=== PATIENT | female | born 1940 | race Hispanic/Latino ===

== ENCOUNTER 2017-08-25 17:39 | Emergency (ER) | payer MEDICARE ==
[~2017-08-25 17:39] MED LIST: ASPI-1012 PO; FISH1CAP49 PO; FURO40TA5 PO; GUAI120L62 PO; HYDR-4154 PO; LEVO25TA54 PO; LORA10TA7 PO; LOSA100T29 PO; MULT-1258 PO; OSEL75 PO; PRED20TA3 PO; SIMV40TA59 PO
[2017-08-25 18:08] LABS: BASOPHILS % (AUTO) 0.4 % (0.0-5.0); EOSINOPHILS % (AUTO) 2.7 % (0.0-8.0); HEMATOCRIT 29.9 % (36-48); LYMPHOCYTES % (AUTO) 16.8 % (21.0-51.0); MEAN CORPUSCULAR HEMOGLOBIN 31.2 pg (27.0-33.0); MEAN CORPUSCULAR HGB CONC 35.4 g/dL (32.0-36.0); MONOCYTES % (AUTO) 7.4 % (3.0-13.0); NEUTROPHILS % (AUTO) 72.7 % (40.0-77.0); PLATELET COUNT (AUTO) 273 K/uL (130-400); RED BLOOD CELL COUNT(AUTO) 3.39 MIL/uL (4.00-5.50); RED CELL DISTRIBUTION WIDTH 12.7 % (11.0-15.5); WHITE BLOOD COUNT (AUTO) 8.2 K/uL (4.8-10.8)
[2017-08-25 18:15] LABS: POTASSIUM 3.9 mmol/L (3.5-5.1)
[2017-08-25 18:18] LABS: INR 0.93 (0.85-1.15); PARTIAL THROMBOPLASTIN TIME 29.5 SEC (26.3-35.5); PROTHROMBIN TIME 9.8 SEC (9.6-11.6)
[2017-08-25] MEDS ORDERED: TRAMADOL HCL 50 MG TABLET ONE ×2 (19:16→19:28)
== END 2017-08-25 19:50 | disposition home or self-care (01) ==
LOC: EDH 17:39
DX: M79.89 Other specified soft tissue disorders (principal); M79.662 Pain in left lower leg; I11.0 Hypertensive heart disease with heart failure; I50.9 Heart failure, unspecified; E11.9 Type 2 diabetes mellitus without complications; E07.9 Disorder of thyroid, unspecified; Z79.4 Long term (current) use of insulin; Z88.0 Allergy status to penicillin
CPT/HCPCS: 36415; 80048; 85025; 85610; 85730; 93971

== ENCOUNTER 2017-08-26 06:15 | Emergency (ER) | payer MEDICARE ==
[2017-08-26] MEDS ORDERED: ACETAMINOPHEN-CODEINE 300/30MG TAB ONE (06:37)
== END 2017-08-26 07:00 | disposition home or self-care (01) ==
LOC: EDH 06:15
DX: I13.0 Hypertensive heart and chronic kidney disease with heart failure and stage 1 through stage 4 chronic kidney disease, or unspecified chronic kidney disease (principal); R60.9 Edema, unspecified; I50.9 Heart failure, unspecified; E11.22 Type 2 diabetes mellitus with diabetic chronic kidney disease; N18.9 Chronic kidney disease, unspecified; E07.9 Disorder of thyroid, unspecified; Z79.4 Long term (current) use of insulin; Z88.0 Allergy status to penicillin

== ENCOUNTER 2018-09-17 12:00 | Inpatient (IN) | payer MEDICARE ==
[~2018-09-17] VITALS: Ht 157.5 cm; Wt 74.8 kg
[~2018-09-17 12:00] MED LIST changes: -LOSA100T29 PO; +LOSA100T58 PO
[2018-09-17 12:42] LABS: BASOPHILS % (AUTO) 0.9 % (0.0-5.0); EOSINOPHILS % (AUTO) 3.9 % (0.0-8.0); HEMATOCRIT 33.1 % (36-48); LYMPHOCYTES % (AUTO) 21.6 % (21.0-51.0); MEAN CORPUSCULAR HEMOGLOBIN 30.5 pg (27.0-33.0); MEAN CORPUSCULAR HGB CONC 33.9 g/dL (32.0-36.0); MEAN CORPUSCULAR VOLUME 89.8 fL (79-99); MONOCYTES % (AUTO) 5.4 % (3.0-13.0); NEUTROPHILS % (AUTO) 68.2 % (40.0-77.0); PLATELET COUNT (AUTO) 266 K/uL (130-400); RED BLOOD CELL COUNT(AUTO) 3.68 MIL/uL (4.00-5.50); RED CELL DISTRIBUTION WIDTH 13.5 % (11.0-15.5); WHITE BLOOD COUNT (AUTO) 6.7 K/uL (4.8-10.8)
[2018-09-17 12:55] LABS: CREATININE 3.6 mg/dL (0.5-1.5); POTASSIUM 4.6 mmol/L (3.5-5.1)
[2018-09-17 13:00] LABS: ALBUMIN 3.5 g/dL (3.5-5.0); BILIRUBIN,TOTAL 0.3 mg/dL (0.2-1.0)
[2018-09-17 13:05] LABS: APPEARANCE,URINE Clear (CLEAR); BILIRUBIN,URINE Negative (NEGATIVE); COLOR,URINE Yellow (YELLOW); GLUCOSE, URINE (UA) Negative (NEGATIVE); KETONES,URINE Negative (NEGATIVE); LEUKOCYTE ESTERASE ,URINE Large (NEGATIVE); NITRATE,URINE Negative (NEGATIVE); OCCULT BLOOD,URINE Negative (NEGATIVE); PROTEIN,URINE Negative (NEGATIVE); UROBILINOGEN,URINE 0.2 mg/dL (0.2-1.0)
[2018-09-17] MEDS ORDERED: ONDANSETRON HCL 4 MG/2 ML VIAL ONE (13:17)
[2018-09-17 13:26] LABS: BACTERIA,URINE Rare /HPF (None Seen); MUCUS,URINE Rare LPF (None Seen); RBC,URINE 0-1 /HPF (0-1); SQUAMOUS EPITHELIAL CELL,UR Rare /HPF (0-2)
[2018-09-17] MEDS ORDERED: ONDANSETRON HCL 4 MG/2 ML VIAL IV PRN (14:00)
[2018-09-17] MEDS ORDERED: ACETAMINOPHEN 325 MG TAB PO PRN ×2 (14:00)
[2018-09-17] MEDS ORDERED: LEVOFLOXACIN 500 MG/D5W 100 ML 100 ML ONE (14:31)
[2018-09-17] MEDS ORDERED: METRONIDAZOLE 500 MG TABLET ONE (16:31)
[2018-09-17] MEDS ORDERED: FAMOTIDINE/PF 20 MG/2 ML VIAL IV ONE (22:25)
[2018-09-17 23:00] VITALS: BP 166/56
[2018-09-17] MEDS: LEVOFLOXACIN 500 MG TABLET PO SCH (23:00)
[2018-09-17] MEDS: METRONIDAZOLE 500 MG TABLET PO SCH (23:00)
[2018-09-17] MEDS: SODIUM CHLORIDE 0.9% 1000ML 1,000 ML IV SCH (23:00)
[2018-09-18] MEDS: METRONIDAZOLE 500 MG TABLET PO SCH ×4 (00:44→21:31)
[2018-09-18] MEDS: SODIUM CHLORIDE 0.9% 1000ML 1,000 ML IV SCH ×3 (00:45→21:31)
[2018-09-18 03:00] VITALS: BP 144/55
[2018-09-18 04:59] LABS: HEMATOCRIT 29.4 % (36-48); MEAN CORPUSCULAR HEMOGLOBIN 29.7 pg (27.0-33.0); MEAN CORPUSCULAR HGB CONC 33.6 g/dL (32.0-36.0); MEAN CORPUSCULAR VOLUME 88.6 fL (79-99); PLATELET COUNT (AUTO) 247 K/uL (130-400); RED BLOOD CELL COUNT(AUTO) 3.32 MIL/uL (4.00-5.50); RED CELL DISTRIBUTION WIDTH 13.4 % (11.0-15.5); WHITE BLOOD COUNT (AUTO) 5.1 K/uL (4.8-10.8)
[2018-09-18 05:07] LABS: CREATININE 2.9 mg/dL (0.5-1.5); POTASSIUM 4.4 mmol/L (3.5-5.1)
[2018-09-18 07:30] VITALS: BP 155/47
[2018-09-18] MEDS: LEVOFLOXACIN 500 MG TABLET PO SCH (09:01)
[2018-09-18] MEDS: FAMOTIDINE/PF 20 MG/2 ML VIAL IV SCH (09:02)
[2018-09-18] MEDS: ENOXAPARIN SODIUM 40 MG/0.4 ML SYRINGE SQ SCH (09:02)
[2018-09-18 11:00] VITALS: BP 124/57
--- NOTE | 2018-09-18 12:11 | NUR ---
DCP CM met with pt discussed dc plans. Pt is independent prior to admission, lives at home with son and daughter in law. Pt has a home health unable to recall name and provider, daughter in law is pt's provider. Pt feels safe to go back home, son and daughter in law able to assist with transportation and needs. DC plan to home once stable. CM to cont to follow up. Addendum: 09/18/18 at 1215 by JUANJOSE DAVILA LVN CM Amended: Links added.
[2018-09-18 16:00] VITALS: BP 135/60
[2018-09-18] MEDS ORDERED: SIMVASTATIN 20 MG TABLET PO SCH (21:00)
[2018-09-18 21:24] VITALS: BP 134/55
[2018-09-19 00:33] VITALS: BP 130/58
[2018-09-19 04:37] LABS: HEMATOCRIT 27.1 % (36-48); MEAN CORPUSCULAR HEMOGLOBIN 30.7 pg (27.0-33.0); MEAN CORPUSCULAR HGB CONC 34.2 g/dL (32.0-36.0); MEAN CORPUSCULAR VOLUME 89.7 fL (79-99); PLATELET COUNT (AUTO) 203 K/uL (130-400); RED BLOOD CELL COUNT(AUTO) 3.02 MIL/uL (4.00-5.50); RED CELL DISTRIBUTION WIDTH 13.2 % (11.0-15.5); WHITE BLOOD COUNT (AUTO) 4.3 K/uL (4.8-10.8)
[2018-09-19 05:06] LABS: CREATININE 2.8 mg/dL (0.5-1.5); POTASSIUM 4.8 mmol/L (3.5-5.1)
[2018-09-19 05:18] VITALS: BP 140/56
[2018-09-19] MEDS: SODIUM CHLORIDE 0.9% 1000ML 1,000 ML IV SCH (06:25)
[2018-09-19] MEDS ORDERED: LEVOTHYROXINE 50 MCG TABLET PO SCH (06:30)
[2018-09-19 08:00] VITALS: BP 107/42
[2018-09-19] MEDS ORDERED: LOSARTAN 100 MG TABLET PO SCH (09:00)
[2018-09-19] MEDS ORDERED: LORATADINE 10 MG TABLET PO SCH (09:00)
[2018-09-19] MEDS: METRONIDAZOLE 500 MG TABLET PO SCH (10:19)
[2018-09-19] MEDS: LEVOFLOXACIN 500 MG TABLET PO SCH (10:20)
[2018-09-19] MEDS: ENOXAPARIN SODIUM 40 MG/0.4 ML SYRINGE SQ SCH (10:20)
[2018-09-19] MEDS: FAMOTIDINE/PF 20 MG/2 ML VIAL IV SCH (10:21)
[2018-09-19] MEDS ORDERED: LEVO250T59 PO (11:34)
[2018-09-19] MEDS ORDERED: METR-152 PO ×2 (11:34→12:10)
[2018-09-19 12:00] VITALS: BP 131/48
== END 2018-09-19 15:05 | disposition home or self-care (01) | DRG 683 ==
LOC: EDH 12:00 → EDHIP 13:59 → 3CH 22:31
PROVIDERS: ADMIT Internal Medicine; ATTEND Internal Medicine
DX: N17.9 Acute kidney failure, unspecified (principal); N39.0 Urinary tract infection, site not specified; I13.0 Hypertensive heart and chronic kidney disease with heart failure and stage 1 through stage 4 chronic kidney disease, or unspecified chronic kidney disease; E86.0 Dehydration; A08.4 Viral intestinal infection, unspecified; N18.9 Chronic kidney disease, unspecified; E11.22 Type 2 diabetes mellitus with diabetic chronic kidney disease; I50.9 Heart failure, unspecified; E78.5 Hyperlipidemia, unspecified; E03.9 Hypothyroidism, unspecified; M10.9 Gout, unspecified; Z79.899 Other long term (current) drug therapy; Z88.0 Allergy status to penicillin; Z91.018 Allergy to other foods; Z83.3 Family history of diabetes mellitus; Z82.5 Family history of asthma and other chronic lower respiratory diseases; Z82.49 Family history of ischemic heart disease and other diseases of the circulatory system; Z82.3 Family history of stroke; Z82.0 Family history of epilepsy and other diseases of the nervous system
CPT/HCPCS: 36415; 80048; 80053; 81001; 85025; 85027; 87088; G0378; J1650; J1956; J2405; J3490

== ENCOUNTER 2019-02-18 17:50 | Emergency (ER) | payer MEDICARE ==
[~2019-02-18 17:50] MED LIST changes: +LEVO250T59 PO; +METR-152 PO
[2019-02-18] MEDS ORDERED: HYDROCHLOROTHIAZIDE 25 MG TABLET ONE (19:07)
[2019-02-18 19:13] LABS: BASOPHILS % (AUTO) 1.1 % (0.0-5.0); EOSINOPHILS % (AUTO) 4.6 % (0.0-8.0); HEMATOCRIT 28.4 % (36-48); LYMPHOCYTES % (AUTO) 19.3 % (21.0-51.0); MEAN CORPUSCULAR HEMOGLOBIN 30.6 pg (27.0-33.0); MEAN CORPUSCULAR HGB CONC 33.9 g/dL (32.0-36.0); MEAN CORPUSCULAR VOLUME 90.5 fL (79-99); MONOCYTES % (AUTO) 6.7 % (3.0-13.0); NEUTROPHILS % (AUTO) 68.3 % (40.0-77.0); NUCLEATED RED BLOOD CELLS 0.1 % (0.0-0.19); PLATELET COUNT (AUTO) 223 K/uL (130-400); RED BLOOD CELL COUNT(AUTO) 3.14 MIL/uL (4.00-5.50); RED CELL DISTRIBUTION WIDTH 13.2 % (11.0-15.5); WHITE BLOOD COUNT (AUTO) 5.2 K/uL (4.8-10.8)
[2019-02-18 19:27] LABS: ALBUMIN 2.8 g/dL (3.5-5.0); BILIRUBIN,TOTAL 0.2 mg/dL (0.2-1.0); CREATININE 2.5 mg/dL (0.5-1.5); TOTAL PROTEIN, SERUM 6.6 g/dL (6.0-8.3)
[2019-02-18 20:00] LABS: APPEARANCE,URINE Clear (CLEAR); BILIRUBIN,URINE Negative (NEGATIVE); COLOR,URINE Yellow (YELLOW); GLUCOSE, URINE (UA) Negative (NEGATIVE); KETONES,URINE Negative (NEGATIVE); LEUKOCYTE ESTERASE ,URINE Negative (NEGATIVE); NITRATE,URINE Negative (NEGATIVE); OCCULT BLOOD,URINE Negative (NEGATIVE); PROTEIN,URINE 300 mg/dL (NEGATIVE); UROBILINOGEN,URINE 0.2 mg/dL (0.2-1.0)
[2019-02-18 20:08] LABS: BACTERIA,URINE Few /HPF (None Seen); RBC,URINE 0-1 /HPF (0-1); WBC,URINE 0-1 /HPF (0-1)
[2019-02-18 20:11] LABS: HYALINE CASTS, URINE 0-1 /LPF (0-1 /LPF); SQUAMOUS EPITHELIAL CELL,UR Rare /HPF (0-2)
[2019-02-18] MEDS ORDERED: HYDRALAZINE HCL 20 MG/ML VIAL ONE (20:30)
== END 2019-02-18 21:35 | disposition home or self-care (01) ==
LOC: EDH 17:50
DX: I13.0 Hypertensive heart and chronic kidney disease with heart failure and stage 1 through stage 4 chronic kidney disease, or unspecified chronic kidney disease (principal); E11.22 Type 2 diabetes mellitus with diabetic chronic kidney disease; N18.9 Chronic kidney disease, unspecified; I50.9 Heart failure, unspecified; E07.9 Disorder of thyroid, unspecified; Z98.890 Other specified postprocedural states; Z79.4 Long term (current) use of insulin; Z88.0 Allergy status to penicillin
CPT/HCPCS: 36415; 80053; 81001; 82550; 84484; 85025; 93005; 96374; 99285; J0360

== ENCOUNTER 2019-04-07 13:07 | Inpatient (IN) | payer MEDICARE ==
[~2019-04-07] VITALS: Ht 157.5 cm; Wt 68.5 kg
[2019-04-07 13:27] LABS: BASOPHILS % (AUTO) 0.8 % (0.0-5.0); EOSINOPHILS % (AUTO) 2.4 % (0.0-8.0); HEMATOCRIT 30.3 % (36-48); LYMPHOCYTES % (AUTO) 15.7 % (21.0-51.0); MEAN CORPUSCULAR HEMOGLOBIN 30.4 pg (27.0-33.0); MEAN CORPUSCULAR VOLUME 89.2 fL (79-99); NEUTROPHILS % (AUTO) 71.1 % (40.0-77.0); PLATELET COUNT (AUTO) 192 K/uL (130-400); RED CELL DISTRIBUTION WIDTH 13.3 % (11.0-15.5); WHITE BLOOD COUNT (AUTO) 5.2 K/uL (4.8-10.8)
[2019-04-07 13:42] LABS: ALBUMIN 2.6 g/dL (3.5-5.0); BILIRUBIN,TOTAL 0.3 mg/dL (0.2-1.0); CREATININE 3.5 mg/dL (0.5-1.5); POTASSIUM 4.3 mmol/L (3.5-5.1); TOTAL PROTEIN, SERUM 6.6 g/dL (6.0-8.3)
[2019-04-07 13:49] LABS: APPEARANCE,URINE CLOUDY (CLEAR); BILIRUBIN,URINE SMALL (NEGATIVE); COLOR,URINE YELLOW (YELLOW); GLUCOSE, URINE (UA) NEGATIVE (NEGATIVE); KETONES,URINE NEGATIVE (NEGATIVE); LEUKOCYTE ESTERASE ,URINE MODERATE (NEGATIVE); NITRATE,URINE NEGATIVE (NEGATIVE); OCCULT BLOOD,URINE NEGATIVE (NEGATIVE); PH,URINE 5.5 (5.0-8.0); PROTEIN,URINE 100 mg/dL (NEGATIVE); UROBILINOGEN,URINE 0.2 mg/dL (0.2-1.0)
[2019-04-07 13:52] LABS: BACTERIA,URINE Many /HPF (None Seen); MUCUS,URINE Few LPF (None Seen); SQUAMOUS EPITHELIAL CELL,UR Few /HPF (0-2); TRANSITIONAL EPI CELLS,URINE Few /HPF (None Seen); WBC,URINE >100 /HPF (0-1)
[2019-04-07] MEDS ORDERED: ONDANSETRON HCL 4 MG/2 ML VIAL ONE (14:06)
[2019-04-07] MEDS ORDERED: SODIUM CHLORIDE 0.9% 1000ML 1,000 ML IV ONE ×3 (14:07→19:16)
[2019-04-07 14:08] LABS: B-TYPE NATRIURETIC PEPTIDE 97 pg/mL (0-100)
[2019-04-07] MEDS ORDERED: LACTULOSE 20 GM/30 ML UDCUP PO PRN (18:15)
[2019-04-07] MEDS ORDERED: ONDANSETRON HCL 4 MG/2 ML VIAL IV PRN (18:15)
[2019-04-07] MEDS ORDERED: ACETAMINOPHEN 325 MG TAB PO PRN ×2 (18:15)
[2019-04-07] MEDS ORDERED: HYDRALAZINE HCL 20 MG/ML VIAL IV PRN (18:15)
[2019-04-07] MEDS: SODIUM CHLORIDE 0.9% 1000ML 1,000 ML IV SCH (20:00)
[2019-04-07] MEDS ORDERED: FAMOTIDINE/PF 20 MG/2 ML VIAL IV ONE (20:02)
[2019-04-07 20:21] LABS: APPEARANCE,URINE Cloudy (CLEAR); BILIRUBIN,URINE Negative (NEGATIVE); COLOR,URINE Yellow (YELLOW); GLUCOSE, URINE (UA) Negative (NEGATIVE); KETONES,URINE Negative (NEGATIVE); LEUKOCYTE ESTERASE ,URINE Moderate (NEGATIVE); NITRATE,URINE Negative (NEGATIVE); OCCULT BLOOD,URINE Negative (NEGATIVE); PROTEIN,URINE Negative (NEGATIVE); UROBILINOGEN,URINE 0.2 mg/dL (0.2-1.0)
[2019-04-07 20:25] LABS: MAGNESIUM 2.1 mg/dL (1.80-2.40); PHOSPHORUS 5.5 mg/dL (2.5-4.9)
[2019-04-07 20:31] LABS: BACTERIA,URINE Few /HPF (None Seen); MUCUS,URINE Few LPF (None Seen); RBC,URINE 0-1 /HPF (0-1)
[2019-04-07 21:37] VITALS: BP 152/83
[2019-04-08] VITALS (7 sets, daily range): BP systolic 15–170; BP diastolic 53–85
[2019-04-08] MEDS ORDERED: FLU VACC QS2019-20 36MOS UP/PF 60 MCG/0.5 ML ML IM ONE (00:30)
[2019-04-08] MEDS ORDERED: PNEUMOCOCCAL VACCINE POLYVALENT 0.5 ML/VIAL [PPV] IM ONE (00:30)
[2019-04-08] MEDS: SODIUM CHLORIDE 0.9% 1000ML 1,000 ML IV SCH ×3 (03:56→22:01)
--- NOTE | 2019-04-08 08:45 | NUR ---
PATIENT UPDATE Pt without any diarrhea episodes overnight, no complaints of abdominal pain overnight. Started with hydration with NS at 100 cc/hr. Patient's blood sugar last night was 81 and 67 this am bec she stated that she didn't eat much the last 3 days bec of the diarrhea episodes, will continue to monitor.
[2019-04-08] MEDS: FAMOTIDINE/PF 20 MG/2 ML VIAL IV SCH (09:47)
[2019-04-08] MEDS: ENOXAPARIN SODIUM 30 MG/0.3 ML SQ SCH (09:47)
--- NOTE | 2019-04-08 11:10 | NUR ---
INITIAL MET W PATIENT ALONE AAOX3; LIVES WITH SON AND DAUGHTER IN LAW WHO WILL PROVIDE TRANSPORT HOME; DAUGHTER IN LAW IS PROVIDER, DOES NOT KNOW HOW MANY HRS SHE GETS- HAS THREE CANES, A WKR AND A WCHAIR, BATHROOM IS HANDICAPPED EQUIPPED, DENIES ANY NEEDS, DCP IS HOME Addendum: 04/08/19 at 1542 by KULDEEP CEE RN CM Amended: Links added.
[2019-04-08 11:55] LABS: OCCULT BLOOD STOOL SINGLE ONLY NEGATIVE (NEGATIVE)
[2019-04-08] MEDS ORDERED: RENAL DOSE IV SCH (13:45)
[2019-04-08] MEDS ORDERED: PHARMACY COMMUNICATION MISC SCH (13:45)
[2019-04-08] MEDS ORDERED: LEVOFLOXACIN 500 MG/D5W 100 ML 100 ML IV SCH (14:00)
[2019-04-08] MEDS ORDERED: POTA10TA18 PO (18:18)
[2019-04-08] MEDS ORDERED: OLME40TA18 PO (18:18)
[2019-04-08] MEDS ORDERED: CARV6.25 PO (18:18)
[2019-04-08] MEDS ORDERED: INSU100I26 SQ (18:18)
[2019-04-08 18:48] LABS: HEMATOCRIT 26.9 % (36-48); MEAN CORPUSCULAR HEMOGLOBIN 30.2 pg (27.0-33.0); NUCLEATED RED BLOOD CELLS 0.1 % (0.0-0.19); PLATELET COUNT (AUTO) 184 K/uL (130-400); RED BLOOD CELL COUNT(AUTO) 3.03 MIL/uL (4.00-5.50); RED CELL DISTRIBUTION WIDTH 13.1 % (11.0-15.5); WHITE BLOOD COUNT (AUTO) 5.4 K/uL (4.8-10.8)
[2019-04-08 19:00] LABS: CREATININE 2.8 mg/dL (0.5-1.5); POTASSIUM 4.1 mmol/L (3.5-5.1)
[2019-04-08] MEDS: FLU VACC QS2019-20 36MOS UP/PF 60 MCG/0.5 ML ML IM ONE ×2 (21:54→22:07)
[2019-04-09] VITALS: BP 162/60
[2019-04-09 04:03] VITALS: BP 154/59
[2019-04-09 04:59] LABS: BASOPHILS % (AUTO) 0.8 % (0.0-5.0); EOSINOPHILS % (AUTO) 4.2 % (0.0-8.0); HEMATOCRIT 26.3 % (36-48); LYMPHOCYTES % (AUTO) 20.2 % (21.0-51.0); MEAN CORPUSCULAR HEMOGLOBIN 29.7 pg (27.0-33.0); MEAN CORPUSCULAR HGB CONC 33.8 g/dL (32.0-36.0); MEAN CORPUSCULAR VOLUME 88.1 fL (79-99); MONOCYTES % (AUTO) 9.2 % (3.0-13.0); NEUTROPHILS % (AUTO) 65.6 % (40.0-77.0); PLATELET COUNT (AUTO) 203 K/uL (130-400); RED BLOOD CELL COUNT(AUTO) 2.99 MIL/uL (4.00-5.50); RED CELL DISTRIBUTION WIDTH 13.7 % (11.0-15.5); WHITE BLOOD COUNT (AUTO) 5.8 K/uL (4.8-10.8)
[2019-04-09 05:26] LABS: CREATININE 2.4 mg/dL (0.5-1.5); POTASSIUM 3.9 mmol/L (3.5-5.1)
[2019-04-09 08:00] VITALS: BP 152/72
[2019-04-09] MEDS: FAMOTIDINE/PF 20 MG/2 ML VIAL IV SCH (10:49)
[2019-04-09] MEDS: SODIUM CHLORIDE 0.9% 1000ML 1,000 ML IV SCH (10:49)
[2019-04-09] MEDS: ENOXAPARIN SODIUM 30 MG/0.3 ML SQ SCH (10:50)
[2019-04-09] MEDS ORDERED: LEVO500T2 PO (10:54)
[2019-04-09 12:00] VITALS: BP 143/56
[2019-04-09] MEDS ORDERED: PNEUMOCOCCAL VACCINE POLYVALENT 0.5 ML/VIAL [PPV] ONE (13:30)
[2019-04-10] MEDS ORDERED: LEVOFLOXACIN 250 MG/D5W 50ML 50 ML IVPB SCH (14:00)
== END 2019-04-09 21:00 | disposition home or self-care (01) | DRG 683 ==
LOC: EDH 13:07 → EDHIP 18:08 → 3BH 21:30
PROVIDERS: ADMIT Internal Medicine; ATTEND Internal Medicine
PROC: 3E02340 Introduction of Influenza Vaccine into Muscle, Percutaneous Approach (ICD-10-PCS; 2019-04-08)
PROC: 3E0234Z Introduction of Serum, Toxoid and Vaccine into Muscle, Percutaneous Approach (ICD-10-PCS; principal; 2019-04-09)
DX: N17.9 Acute kidney failure, unspecified (principal); N39.0 Urinary tract infection, site not specified; N18.4 Chronic kidney disease, stage 4 (severe); E86.1 Hypovolemia; R19.7 Diarrhea, unspecified; Z82.0 Family history of epilepsy and other diseases of the nervous system; Z82.3 Family history of stroke; Z82.49 Family history of ischemic heart disease and other diseases of the circulatory system; Z82.5 Family history of asthma and other chronic lower respiratory diseases; Z83.3 Family history of diabetes mellitus; Z88.6 Allergy status to analgesic agent; Z88.1 Allergy status to other antibiotic agents; Z88.0 Allergy status to penicillin; Z88.8 Allergy status to other drugs, medicaments and biological substances; Z23 Encounter for immunization
CPT/HCPCS: 36415; 71045; 74176; 80048; 80053; 81001; 82270; 82948; 83540; 83550; 83735; 83880; 84100; 84145; 84484; 85025; 85027; 87046; 87077; 87088; 87186; 87324; 90732; 93005; G0378; J1650; J1956; J2405; J3490; J7030; Q2035

== ENCOUNTER 2020-10-11 16:17 | Emergency (ER) | payer MEDICARE ==
[~2020-10-11 16:17] MED LIST changes: -ASPI-1012 PO; +CARV6.25 PO; +FERS325 PO; -FISH1CAP49 PO; +FOLI0.8T22 PO; -GUAI120L62 PO; +INSLAN SQ; -LEVO250T59 PO; -LEVO25TA54 PO; +LEVO50TA11 PO; -LOSA100T58 PO; +LOSA50TA64 PO; -METR-152 PO; -MULT-1258 PO; +MULT1TAB61 PO; +OMEG-148 PO; -OSEL75 PO; +POTA10TA18 PO; -PRED20TA3 PO; +SODI650T PO
[2020-10-11 17:46] LABS: BASOPHILS % (AUTO) 0.6 % (0.0-5.0); EOSINOPHILS % (AUTO) 5.5 % (0.0-8.0); HEMATOCRIT 24.8 % (36-48); LYMPHOCYTES % (AUTO) 20.7 % (21.0-51.0); MEAN CORPUSCULAR HEMOGLOBIN 28.9 pg (27.0-33.0); MEAN CORPUSCULAR HGB CONC 30.6 g/dL (32.0-36.0); MEAN CORPUSCULAR VOLUME 94.3 fL (79-99); MONOCYTES % (AUTO) 6.8 % (3.0-13.0); PLATELET COUNT (AUTO) 179 K/uL (130-400); RED BLOOD CELL COUNT(AUTO) 2.63 MIL/uL (4.00-5.50); RED CELL DISTRIBUTION WIDTH 14.1 % (11.0-15.5); WHITE BLOOD COUNT (AUTO) 5.3 K/uL (4.8-10.8)
[2020-10-11 18:04] LABS: ALBUMIN 3.2 g/dL (3.5-5.0); BILIRUBIN,TOTAL 0.2 mg/dL (0.2-1.0); CREATININE 5.3 mg/dL (0.5-1.5); POTASSIUM 5.7 mmol/L (3.5-5.1); TOTAL PROTEIN, SERUM 7.1 g/dL (6.0-8.3)
[2020-10-11] MEDS ORDERED: SODIUM POLYSTYRENE SULFONATE 15 GM/60 ML ML ONE (19:35)
[2020-10-11] MEDS ORDERED: SODIUM BICARB 50MEQ 50ML VIAL 50 ML ONE (19:35)
== END 2020-10-11 21:54 | disposition home or self-care (01) ==
LOC: EDH 16:17
DX: E87.5 Hyperkalemia (principal); I13.0 Hypertensive heart and chronic kidney disease with heart failure and stage 1 through stage 4 chronic kidney disease, or unspecified chronic kidney disease; E11.22 Type 2 diabetes mellitus with diabetic chronic kidney disease; N18.4 Chronic kidney disease, stage 4 (severe); I50.9 Heart failure, unspecified; M10.9 Gout, unspecified; E78.00 Pure hypercholesterolemia, unspecified; Z88.0 Allergy status to penicillin; Z91.013 Allergy to seafood
CPT/HCPCS: 36415; 71045; 80053; 85025; 93005; 96374; 99285; J3490

== ENCOUNTER 2021-06-29 05:50 | Inpatient (IN) | payer MEDICARE ==
[~2021-06-29] VITALS: Ht 157.5 cm; Wt 55.8 kg
[~2021-06-29 05:50] MED LIST changes: +POTA-187 PO; -POTA10TA18 PO
[2021-06-29 06:37] LABS: HEMATOCRIT 21.5 % (36-48); MEAN CORPUSCULAR HEMOGLOBIN 29.4 pg (27.0-33.0); MEAN CORPUSCULAR HGB CONC 33.5 g/dL (32.0-36.0); MEAN CORPUSCULAR VOLUME 87.8 fL (79-99); PLATELET COUNT (AUTO) 299 K/uL (130-400); RED BLOOD CELL COUNT(AUTO) 2.45 MIL/uL (4.00-5.50); RED CELL DISTRIBUTION WIDTH 13.4 % (11.0-15.5)
[2021-06-29 07:15] LABS: B-TYPE NATRIURETIC PEPTIDE 224 pg/mL (0-100)
[2021-06-29 07:59] LABS: BASOPHILS % (MANUAL) 1 % (0-2); LYMPHOCYTES % (MANUAL) 4 % (22-44); MONOCYTES % (MANUAL) 2 % (2-9); SEGMENTED NEUTROPHILS % 93 % (40-70)
[2021-06-29 08:00] LABS: MAN.DIFF COMMENT-IMPRESSION MANUAL DIFFERENTIAL; PLATELET MORPHOLOGY COMMENT ADEQUATE
[2021-06-29] MEDS ORDERED: SODIUM CHLORIDE 3% FOR INHALATION 4 ML/AMP VIAL.NEB IH ONE ×3 (09:06→18:56)
[2021-06-29 09:10] LABS: ALBUMIN 2.5 g/dL (3.5-5.0); BILIRUBIN,TOTAL 0.3 mg/dL (0.2-1.0); POTASSIUM 4.7 mmol/L (3.5-5.1); TOTAL PROTEIN, SERUM 7.9 g/dL (6.0-8.3)
[2021-06-29] MEDS: PANTOPRAZOLE 40 MG/VIAL IVP SCH ×2 (09:11→21:19)
[2021-06-29 09:33] LABS: CREATININE 11.3 mg/dL (0.5-1.5)
[2021-06-29] MEDS ORDERED: PHARMACY COMMUNICATION MISC SCH (10:00)
[2021-06-29] MEDS ORDERED: HYDRALAZINE 20MG/ML VIAL IV PRN (10:00)
[2021-06-29] MEDS ORDERED: SODIUM BICARB 50MEQ 50ML VIAL 150 MEQ in DEXTROSE 5%-WATER 1,000 ML IV SCH (10:00)
[2021-06-29] MEDS: CARVEDILOL 6.25 MG TABLET PO SCH ×2 (10:01→21:26)
[2021-06-29] MEDS: AMLODIPINE 5 MG TAB PO SCH (10:02)
[2021-06-29] MEDS ORDERED: SODIUM BICARB 50MEQ 50ML VIAL 50 ML ONE (10:13)
[2021-06-29] MEDS ORDERED: SODIUM BICARB 8.4% 50ML SYRINGE IVP SCH (10:30)
[2021-06-29 10:31] LABS: ABG BASE EXCESS -14.1 mmol/L (-2.0-3.0); ABG HCO3 8.1 mmol/L (21.0-28.0); ABG OXYGEN SATURATION 98.3 % (95.0-99.0); ABG PCO2 15 mmHg (32-45)
[2021-06-29 11:57] LABS: % IRON SATURATION 96.5 % (22-44)
[2021-06-29 12:00] LABS: HEMOGLOBIN A1C 4.1 % (4.0-6.0)
[2021-06-29] MEDS ORDERED: 0.9%NACL 1000ML 1,000 ML IV ONE ×2 (12:31→13:00)
[2021-06-29 13:29] LABS: POTASSIUM 4.2 mmol/L (3.5-5.1)
[2021-06-29 13:37] LABS: CREATININE 11.2 mg/dL (0.5-1.5)
[2021-06-29 13:52] LABS: HEMATOCRIT 18.5 % (36-48)
[2021-06-29] MEDS: SODIUM BICARBONATE 650 MG TAB PO SCH ×3 (14:27→21:17)
[2021-06-29 18:47] LABS: HEMATOCRIT 23.4 % (36-48)
[2021-06-29] MEDS: HYDRALAZINE 25MG TABLET PO SCH (21:00)
[2021-06-29] MEDS ORDERED: FUROSEMIDE 40 MG TABLET PO SCH (21:00)
[2021-06-29] MEDS: SIMVASTATIN 20 MG TABLET PO SCH (21:17)
[2021-06-30 00:10] VITALS: BP 161/71
[2021-06-30] MEDS ORDERED: GUAI5SYR PO (01:12)
[2021-06-30] MEDS ORDERED: FERR-72 PO (01:12)
[2021-06-30] MEDS ORDERED: OLME40TA18 PO (01:12)
[2021-06-30] MEDS ORDERED: LEVO500T90 PO (01:12)
[2021-06-30] MEDS: IPRATROPIUM/ALBUTEROL SULFATE 3 ML SOLUTION IH SCH ×4 (01:16→19:10)
[2021-06-30 02:23] LABS: APPEARANCE,URINE Clear (CLEAR); BILIRUBIN,URINE Negative (NEGATIVE); COLOR,URINE Yellow (YELLOW); GLUCOSE, URINE (UA) Negative (NEGATIVE); KETONES,URINE Negative (NEGATIVE); LEUKOCYTE ESTERASE ,URINE Trace (NEGATIVE); NITRATE,URINE Negative (NEGATIVE); OCCULT BLOOD,URINE Trace (NEGATIVE); PROTEIN,URINE POS 2+ mg/dL (NEGATIVE); UROBILINOGEN,URINE 0.2 mg/dL (0.2-1.0)
[2021-06-30 02:37] LABS: AMORPHOUS SEDIMENT,UR Rare /LPF (None Seen); BACTERIA,URINE Rare /HPF (None Seen); RBC,URINE 0-1 /HPF (0-1); SQUAMOUS EPITHELIAL CELL,UR 0-2 /HPF (0-2)
[2021-06-30 04:00] VITALS: BP 147/63
[2021-06-30 06:54] LABS: BASOPHILS % (AUTO) 0.3 % (0.0-5.0); EOSINOPHILS % (AUTO) 1.4 % (0.0-8.0); HEMATOCRIT 21.1 % (36-48); MEAN CORPUSCULAR HEMOGLOBIN 28.9 pg (27.0-33.0); MEAN CORPUSCULAR HGB CONC 34.6 g/dL (32.0-36.0); MEAN CORPUSCULAR VOLUME 83.4 fL (79-99); MONOCYTES % (AUTO) 5.1 % (3.0-13.0); NEUTROPHILS % (AUTO) 86.4 % (40.0-77.0); PLATELET COUNT (AUTO) 214 K/uL (130-400); RED BLOOD CELL COUNT(AUTO) 2.53 MIL/uL (4.00-5.50); RED CELL DISTRIBUTION WIDTH 13.2 % (11.0-15.5); WHITE BLOOD COUNT (AUTO) 7.4 K/uL (4.8-10.8)
[2021-06-30 08:00] VITALS: BP 148/58
[2021-06-30] MEDS ORDERED: POTASSIUM CHLORIDE 10MEQ SR TAB PO SCH (09:00)
[2021-06-30] MEDS ORDERED: LORATADINE 10 MG TABLET PO SCH (09:00)
[2021-06-30] MEDS: PANTOPRAZOLE 40 MG/VIAL IVP SCH ×2 (10:04→21:23)
[2021-06-30] MEDS: HYDRALAZINE 25MG TABLET PO SCH ×2 (10:04→21:24)
[2021-06-30] MEDS: SODIUM BICARBONATE 650 MG TAB PO SCH ×4 (10:04→21:23)
[2021-06-30] MEDS: CARVEDILOL 6.25 MG TABLET PO SCH ×2 (10:05→21:23)
[2021-06-30] MEDS: AMLODIPINE 5 MG TAB PO SCH (10:05)
[2021-06-30] MEDS: LEVOTHYROXINE 50 MCG TABLET PO SCH (10:08)
[2021-06-30 12:00] VITALS: BP 140/56
[2021-06-30 16:00] VITALS: BP 133/60
[2021-06-30 19:00] VITALS: BP 134/64
[2021-06-30] MEDS: SIMVASTATIN 20 MG TABLET PO SCH (21:23)
[2021-07-01] VITALS: BP 146/58
[2021-07-01] MEDS: IPRATROPIUM/ALBUTEROL SULFATE 3 ML SOLUTION IH SCH ×4 (00:05→18:38)
[2021-07-01 04:00] VITALS: BP 145/60
[2021-07-01] MEDS: LEVOTHYROXINE 50 MCG TABLET PO SCH (06:54)
[2021-07-01 07:02] LABS: BASOPHILS % (AUTO) 0.1 % (0.0-5.0); EOSINOPHILS % (AUTO) 1.6 % (0.0-8.0); LYMPHOCYTES % (AUTO) 5.4 % (21.0-51.0); MEAN CORPUSCULAR HEMOGLOBIN 29.5 pg (27.0-33.0); MEAN CORPUSCULAR HGB CONC 34.5 g/dL (32.0-36.0); MEAN CORPUSCULAR VOLUME 85.5 fL (79-99); MONOCYTES % (AUTO) 5.4 % (3.0-13.0); NEUTROPHILS % (AUTO) 86.3 % (40.0-77.0); PLATELET COUNT (AUTO) 217 K/uL (130-400); RED BLOOD CELL COUNT(AUTO) 2.34 MIL/uL (4.00-5.50); RED CELL DISTRIBUTION WIDTH 14.2 % (11.0-15.5); WHITE BLOOD COUNT (AUTO) 6.9 K/uL (4.8-10.8)
[2021-07-01 07:20] VITALS: BP 146/54
[2021-07-01 07:20] LABS: POTASSIUM 3.7 mmol/L (3.5-5.1)
[2021-07-01 07:33] LABS: CREATININE 10.5 mg/dL (0.5-1.5)
[2021-07-01] MEDS: PANTOPRAZOLE 40 MG/VIAL IVP SCH ×2 (08:53→22:14)
[2021-07-01] MEDS: AMLODIPINE 5 MG TAB PO SCH (08:53)
[2021-07-01] MEDS: SODIUM BICARBONATE 650 MG TAB PO SCH ×4 (08:53→22:15)
[2021-07-01] MEDS: HYDRALAZINE 25MG TABLET PO SCH ×2 (08:54→22:15)
[2021-07-01] MEDS: CARVEDILOL 6.25 MG TABLET PO SCH ×2 (08:55→22:16)
[2021-07-01 12:00] VITALS: BP 138/52
[2021-07-01] MEDS: LACTULOSE 20 GM/30 ML UDCUP PO PRN (13:26)
[2021-07-01] MEDS ORDERED: EPOETIN ALFA-EPBX (NON-ESRD) 10,000 UNIT/ML VIAL SQ SCH (14:00)
[2021-07-01 16:00] VITALS: BP 131/62
[2021-07-01 21:22] VITALS: BP 141/53
[2021-07-01] MEDS: SIMVASTATIN 20 MG TABLET PO SCH (22:14)
[2021-07-02] VITALS (7 sets, daily range): BP systolic 128–161; BP diastolic 49–88
[2021-07-02] MEDS: IPRATROPIUM/ALBUTEROL SULFATE 3 ML SOLUTION IH SCH ×4 (00:02→19:58)
[2021-07-02] MEDS: LEVOTHYROXINE 50 MCG TABLET PO SCH (05:41)
[2021-07-02 07:03] LABS: BASOPHILS % (AUTO) 0.4 % (0.0-5.0); LYMPHOCYTES % (AUTO) 6.6 % (21.0-51.0); MEAN CORPUSCULAR HEMOGLOBIN 28.2 pg (27.0-33.0); MEAN CORPUSCULAR HGB CONC 33.3 g/dL (32.0-36.0); MEAN CORPUSCULAR VOLUME 84.5 fL (79-99); MONOCYTES % (AUTO) 5.6 % (3.0-13.0); PLATELET COUNT (AUTO) 206 K/uL (130-400); RED BLOOD CELL COUNT(AUTO) 2.45 MIL/uL (4.00-5.50); RED CELL DISTRIBUTION WIDTH 14.3 % (11.0-15.5)
[2021-07-02 07:08] LABS: HEMATOCRIT 20.7 % (36-48)
[2021-07-02 07:40] LABS: POTASSIUM 3.6 mmol/L (3.5-5.1)
[2021-07-02] MEDS: AMLODIPINE 5 MG TAB PO SCH (10:14)
[2021-07-02] MEDS: PANTOPRAZOLE 40 MG/VIAL IVP SCH ×2 (10:15→21:32)
[2021-07-02] MEDS: CARVEDILOL 6.25 MG TABLET PO SCH ×2 (10:15→21:33)
[2021-07-02] MEDS: SODIUM BICARBONATE 650 MG TAB PO SCH ×4 (10:15→21:32)
[2021-07-02] MEDS: HYDRALAZINE 25MG TABLET PO SCH ×2 (10:16→21:32)
[2021-07-02 14:27] LABS: POTASSIUM 3.9 mmol/L (3.5-5.1)
[2021-07-02 14:33] LABS: CREATININE 9.8 mg/dL (0.5-1.5)
[2021-07-02] MEDS: SIMVASTATIN 20 MG TABLET PO SCH (21:33)
[2021-07-03] VITALS (16 sets, daily range): BP systolic 111–154; BP diastolic 51–70
[2021-07-03 04:11] LABS: BASOPHILS % (AUTO) 0.3 % (0.0-5.0); EOSINOPHILS % (AUTO) 2.1 % (0.0-8.0); HEMATOCRIT 22.4 % (36-48); MEAN CORPUSCULAR HEMOGLOBIN 28.4 pg (27.0-33.0); MEAN CORPUSCULAR HGB CONC 33.9 g/dL (32.0-36.0); MEAN CORPUSCULAR VOLUME 83.6 fL (79-99); MONOCYTES % (AUTO) 6.8 % (3.0-13.0); NEUTROPHILS % (AUTO) 79.8 % (40.0-77.0); PLATELET COUNT (AUTO) 202 K/uL (130-400); RED BLOOD CELL COUNT(AUTO) 2.68 MIL/uL (4.00-5.50); RED CELL DISTRIBUTION WIDTH 14.4 % (11.0-15.5)
[2021-07-03 04:22] LABS: INR 1.05 (0.85-1.15); PROTHROMBIN TIME 11.4 SEC (9.6-11.6)
[2021-07-03 04:23] LABS: PARTIAL THROMBOPLASTIN TIME 43.5 SEC (26.3-35.5)
[2021-07-03 04:35] LABS: ALBUMIN 1.8 g/dL (3.5-5.0); BILIRUBIN,TOTAL 0.2 mg/dL (0.2-1.0); PHOSPHORUS 7.7 mg/dL (2.5-4.9); POTASSIUM 3.5 mmol/L (3.5-5.1); TOTAL PROTEIN, SERUM 5.6 g/dL (6.0-8.3)
[2021-07-03 04:59] LABS: CREATININE 9.5 mg/dL (0.5-1.5)
[2021-07-03] MEDS: LEVOTHYROXINE 50 MCG TABLET PO SCH ×2 (05:43→06:10)
[2021-07-03] MEDS: CARVEDILOL 6.25 MG TABLET PO SCH ×2 (06:10→19:49)
[2021-07-03] MEDS: IPRATROPIUM/ALBUTEROL SULFATE 3 ML SOLUTION IH SCH ×5 (06:23→23:58)
[2021-07-03] MEDS ORDERED: LIDOCAINE HCL 1% MDV 50ML VIAL ONE (07:42)
[2021-07-03] MEDS ORDERED: HEPARIN 1,000 UNIT VIAL ONE (07:42)
[2021-07-03] MEDS: PANTOPRAZOLE 40 MG/VIAL IVP SCH ×2 (09:44→19:50)
[2021-07-03] MEDS: FERROUS SULFATE 325 MG TABLET.DR PO SCH (09:44)
[2021-07-03] MEDS: SODIUM BICARBONATE 650 MG TAB PO SCH ×3 (09:44→19:50)
[2021-07-03] MEDS: AMLODIPINE 5 MG TAB PO SCH (09:45)
[2021-07-03] MEDS: HYDRALAZINE 25MG TABLET PO SCH ×2 (09:45→19:50)
[2021-07-03 10:39] LABS: ABG BASE EXCESS -14.7 mmol/L (-2.0-3.0); ABG HCO3 10.6 mmol/L (21.0-28.0); ABG OXYGEN SATURATION 97.4 % (95.0-99.0); ABG PCO2 24 mmHg (32-45)
[2021-07-03 12:45] LABS: HEMOGLOBIN A1C 5.2 % (4.0-6.0)
[2021-07-03 12:47] LABS: CHOLESTEROL 89 mg/dL (<200); HDL CHOLESTEROL 29 mg/dL (35-85); LDL DIRECT 42 mg/dL (0-99); TRIGLYCERIDES 95 mg/dL (30-200)
[2021-07-03 13:04] LABS: % IRON SATURATION 60.2 % (22-44)
[2021-07-03] MEDS: SODIUM BICARB 50MEQ 50ML VIAL IV SCH (16:44)
[2021-07-03] MEDS ORDERED: 0.9%NACL 1000ML 1,000 ML IV PRN (18:30)
[2021-07-03] MEDS: SIMVASTATIN 20 MG TABLET PO SCH (19:50)
[2021-07-03] MEDS ORDERED: ACETAMINOPHEN 325 MG TAB PO PRN (20:00)
[2021-07-03] MEDS ORDERED: TRAMADOL HCL 50 MG TABLET PO PRN (20:00)
[2021-07-04] VITALS (20 sets, daily range): BP systolic 137–174; BP diastolic 54–75
[2021-07-04] MEDS: LEVOTHYROXINE 50 MCG TABLET PO SCH (05:50)
[2021-07-04 06:01] LABS: BASOPHILS % (AUTO) 0.3 % (0.0-5.0); EOSINOPHILS % (AUTO) 1.6 % (0.0-8.0); HEMATOCRIT 24.5 % (36-48); MEAN CORPUSCULAR HEMOGLOBIN 28.7 pg (27.0-33.0); MEAN CORPUSCULAR HGB CONC 35.1 g/dL (32.0-36.0); MEAN CORPUSCULAR VOLUME 81.7 fL (79-99); MONOCYTES % (AUTO) 6.4 % (3.0-13.0); NEUTROPHILS % (AUTO) 82.7 % (40.0-77.0); PLATELET COUNT (AUTO) 191 K/uL (130-400); RED CELL DISTRIBUTION WIDTH 14.3 % (11.0-15.5); WHITE BLOOD COUNT (AUTO) 6.1 K/uL (4.8-10.8)
[2021-07-04 06:26] LABS: CREATININE 6.5 mg/dL (0.5-1.5); POTASSIUM 3.2 mmol/L (3.5-5.1)
[2021-07-04] MEDS: IPRATROPIUM/ALBUTEROL SULFATE 3 ML SOLUTION IH SCH ×4 (06:52→23:10)
[2021-07-04 07:21] LABS: HEPATITIS B CORE IGM Negative (Negative); HEPATITIS Bs ANTIGEN SCREEN P Negative (Negative)
[2021-07-04] MEDS: SODIUM BICARB 50MEQ 50ML VIAL IV SCH (08:43)
[2021-07-04] MEDS: HYDRALAZINE 25MG TABLET PO SCH ×2 (09:00→21:09)
[2021-07-04] MEDS: AMLODIPINE 5 MG TAB PO SCH (09:00)
[2021-07-04] MEDS: CARVEDILOL 6.25 MG TABLET PO SCH ×2 (09:00→21:08)
[2021-07-04] MEDS: PANTOPRAZOLE 40 MG/VIAL IVP SCH ×2 (09:33→21:08)
[2021-07-04] MEDS: SODIUM BICARBONATE 650 MG TAB PO SCH ×4 (09:34→21:08)
[2021-07-04] MEDS: FERROUS SULFATE 325 MG TABLET.DR PO SCH (09:34)
[2021-07-04] MEDS ORDERED: HYDROMORPHONE 0.5 MG SYG (0.5MG/0.5ML) IVP PRN (15:30)
[2021-07-04] MEDS: LACTULOSE 20 GM/30 ML UDCUP PO PRN (16:49)
[2021-07-04] MEDS: SIMVASTATIN 20 MG TABLET PO SCH (21:08)
[2021-07-04] MEDS ORDERED: EPOETIN ALFA-EPBX (ESRD) 10,000 UNIT/ML VIAL SQ ONE (23:00)
[2021-07-05 04:21] VITALS: BP 138/72
[2021-07-05] MEDS: LEVOTHYROXINE 50 MCG TABLET PO SCH (05:19)
[2021-07-05 08:00] VITALS: BP 137/52
[2021-07-05] MEDS: IPRATROPIUM/ALBUTEROL SULFATE 3 ML SOLUTION IH SCH ×4 (08:42→23:08)
[2021-07-05] MEDS ORDERED: EPOETIN ALFA-EPBX (ESRD) 10,000 UNIT/ML VIAL SQ ONE (09:00)
[2021-07-05] MEDS: HYDRALAZINE 25MG TABLET PO SCH ×2 (09:00→20:01)
[2021-07-05] MEDS: AMLODIPINE 5 MG TAB PO SCH (09:00)
[2021-07-05] MEDS: CARVEDILOL 6.25 MG TABLET PO SCH ×2 (09:00→20:01)
[2021-07-05] MEDS: FERROUS SULFATE 325 MG TABLET.DR PO SCH (09:38)
[2021-07-05] MEDS: PANTOPRAZOLE 40 MG/VIAL IVP SCH ×2 (09:39→20:00)
[2021-07-05] MEDS: SODIUM BICARBONATE 650 MG TAB PO SCH ×3 (09:39→20:59)
[2021-07-05] MEDS: LACTULOSE 20 GM/30 ML UDCUP PO PRN (09:42)
[2021-07-05 12:00] VITALS: BP 155/61
[2021-07-05] MEDS: SODIUM BICARB 50MEQ 50ML VIAL IV SCH (13:30)
[2021-07-05 15:56] LABS: ALBUMIN 1.8 g/dL (3.5-5.0); BILIRUBIN,TOTAL 0.2 mg/dL (0.2-1.0); CREATININE 4.7 mg/dL (0.5-1.5); TOTAL PROTEIN, SERUM 5.8 g/dL (6.0-8.3)
[2021-07-05 16:00] VITALS: BP 137/57
[2021-07-05 16:20] LABS: POTASSIUM 2.8 mmol/L (3.5-5.1)
[2021-07-05] MEDS ORDERED: KCL 20 MEQ ERTAB PO ONE (17:30)
[2021-07-05] MEDS: SIMVASTATIN 20 MG TABLET PO SCH (20:01)
[2021-07-05 20:15] VITALS: BP 143/64
[2021-07-05 23:07] VITALS: BP 143/56
[2021-07-06] VITALS (21 sets, daily range): BP systolic 127–169; BP diastolic 50–68
[2021-07-06] MEDS: LEVOTHYROXINE 50 MCG TABLET PO SCH (05:42)
[2021-07-06 06:16] LABS: CREATININE 5.3 mg/dL (0.5-1.5); POTASSIUM 3.2 mmol/L (3.5-5.1)
[2021-07-06] MEDS: IPRATROPIUM/ALBUTEROL SULFATE 3 ML SOLUTION IH SCH ×3 (06:21→18:57)
[2021-07-06] MEDS: SODIUM BICARBONATE 650 MG TAB PO SCH ×4 (09:00→21:49)
[2021-07-06] MEDS: PANTOPRAZOLE 40 MG/VIAL IVP SCH ×2 (09:00→21:50)
[2021-07-06] MEDS: AMLODIPINE 5 MG TAB PO SCH (12:35)
[2021-07-06] MEDS: CARVEDILOL 6.25 MG TABLET PO SCH ×2 (12:35→21:49)
[2021-07-06] MEDS: HYDRALAZINE 25MG TABLET PO SCH ×2 (12:35→21:48)
[2021-07-06] MEDS: FERROUS SULFATE 325 MG TABLET.DR PO SCH (12:35)
[2021-07-06] MEDS: SODIUM BICARB 50MEQ 50ML VIAL IV SCH (12:44)
[2021-07-06] MEDS: SIMVASTATIN 20 MG TABLET PO SCH (21:49)
[2021-07-07] VITALS (22 sets, daily range): BP systolic 113–154; BP diastolic 47–66
[2021-07-07] MEDS: IPRATROPIUM/ALBUTEROL SULFATE 3 ML SOLUTION IH SCH ×4 (00:13→18:21)
[2021-07-07 05:46] LABS: BASOPHILS % (AUTO) 0.4 % (0.0-5.0); EOSINOPHILS % (AUTO) 1.6 % (0.0-8.0); HEMATOCRIT 25.4 % (36-48); MEAN CORPUSCULAR HEMOGLOBIN 28.6 pg (27.0-33.0); MEAN CORPUSCULAR HGB CONC 32.3 g/dL (32.0-36.0); MEAN CORPUSCULAR VOLUME 88.5 fL (79-99); MONOCYTES % (AUTO) 5.2 % (3.0-13.0); NEUTROPHILS % (AUTO) 83.9 % (40.0-77.0); PLATELET COUNT (AUTO) 178 K/uL (130-400); RED BLOOD CELL COUNT(AUTO) 2.87 MIL/uL (4.00-5.50); RED CELL DISTRIBUTION WIDTH 14.6 % (11.0-15.5); WHITE BLOOD COUNT (AUTO) 9.1 K/uL (4.8-10.8)
[2021-07-07 06:20] LABS: ALBUMIN 1.8 g/dL (3.5-5.0); BILIRUBIN,TOTAL 0.3 mg/dL (0.2-1.0); CREATININE 3.7 mg/dL (0.5-1.5); POTASSIUM 3.6 mmol/L (3.5-5.1); TOTAL PROTEIN, SERUM 5.7 g/dL (6.0-8.3)
[2021-07-07] MEDS: LEVOTHYROXINE 50 MCG TABLET PO SCH (06:33)
[2021-07-07] MEDS: SODIUM BICARBONATE 650 MG TAB PO SCH ×4 (09:32→20:29)
[2021-07-07] MEDS: AMLODIPINE 5 MG TAB PO SCH (09:32)
[2021-07-07] MEDS: HYDRALAZINE 25MG TABLET PO SCH ×2 (09:32→20:30)
[2021-07-07] MEDS: FERROUS SULFATE 325 MG TABLET.DR PO SCH (09:32)
[2021-07-07] MEDS: PANTOPRAZOLE 40 MG/VIAL IVP SCH ×2 (09:34→20:29)
[2021-07-07] MEDS: CARVEDILOL 6.25 MG TABLET PO SCH ×2 (09:34→20:30)
[2021-07-07] MEDS: SODIUM BICARB 50MEQ 50ML VIAL IV SCH (13:30)
[2021-07-07] MEDS: SIMVASTATIN 20 MG TABLET PO SCH (20:29)
[2021-07-08] MEDS: IPRATROPIUM/ALBUTEROL SULFATE 3 ML SOLUTION IH SCH ×4 (00:18→18:53)
[2021-07-08 04:00] VITALS: BP 116/53
[2021-07-08 04:00] LABS: BASOPHILS % (AUTO) 0.4 % (0.0-5.0); EOSINOPHILS % (AUTO) 1.7 % (0.0-8.0); HEMATOCRIT 26.6 % (36-48); LYMPHOCYTES % (AUTO) 5.6 % (21.0-51.0); MEAN CORPUSCULAR HEMOGLOBIN 28.1 pg (27.0-33.0); MEAN CORPUSCULAR HGB CONC 31.6 g/dL (32.0-36.0); MONOCYTES % (AUTO) 3.7 % (3.0-13.0); NEUTROPHILS % (AUTO) 87.4 % (40.0-77.0); PLATELET COUNT (AUTO) 180 K/uL (130-400); RED BLOOD CELL COUNT(AUTO) 2.99 MIL/uL (4.00-5.50); RED CELL DISTRIBUTION WIDTH 14.6 % (11.0-15.5); WHITE BLOOD COUNT (AUTO) 10.4 K/uL (4.8-10.8)
[2021-07-08 04:09] LABS: CREATININE 2.8 mg/dL (0.5-1.5); POTASSIUM 3.5 mmol/L (3.5-5.1)
[2021-07-08] MEDS: LEVOTHYROXINE 50 MCG TABLET PO SCH (06:30)
[2021-07-08] MEDS: PANTOPRAZOLE 40 MG/VIAL IVP SCH ×2 (07:54→21:13)
[2021-07-08] MEDS: FERROUS SULFATE 325 MG TABLET.DR PO SCH (07:55)
[2021-07-08] MEDS: CARVEDILOL 6.25 MG TABLET PO SCH ×2 (07:55→21:15)
[2021-07-08] MEDS: SODIUM BICARBONATE 650 MG TAB PO SCH ×4 (07:56→21:13)
[2021-07-08 08:00] VITALS: BP 105/50
[2021-07-08 11:56] VITALS: BP 122/50
[2021-07-08] MEDS: SODIUM BICARB 50MEQ 50ML VIAL IV SCH (13:30)
[2021-07-08 16:00] VITALS: BP 146/63
[2021-07-08] MEDS: AMLODIPINE 5 MG TAB PO SCH (16:25)
[2021-07-08] MEDS: HYDRALAZINE 25MG TABLET PO SCH ×2 (16:26→21:15)
[2021-07-08 20:00] VITALS: BP 126/49
[2021-07-08] MEDS: SIMVASTATIN 20 MG TABLET PO SCH (21:16)
[2021-07-09] VITALS: BP 130/53
[2021-07-09] MEDS: IPRATROPIUM/ALBUTEROL SULFATE 3 ML SOLUTION IH SCH ×4 (00:57→18:14)
[2021-07-09 04:00] VITALS: BP 144/53
[2021-07-09 04:50] LABS: RED BLOOD CELL COUNT(AUTO) 2.76 MIL/uL (4.00-5.50)
[2021-07-09 04:51] LABS: BASOPHILS % (AUTO) 0.3 % (0.0-5.0); EOSINOPHILS % (AUTO) 1.9 % (0.0-8.0); HEMATOCRIT 24.8 % (36-48); LYMPHOCYTES % (AUTO) 4.3 % (21.0-51.0); MEAN CORPUSCULAR HEMOGLOBIN 28.6 pg (27.0-33.0); MEAN CORPUSCULAR HGB CONC 31.9 g/dL (32.0-36.0); MEAN CORPUSCULAR VOLUME 89.9 fL (79-99); MONOCYTES % (AUTO) 4.2 % (3.0-13.0); NEUTROPHILS % (AUTO) 88.8 % (40.0-77.0); PLATELET COUNT (AUTO) 196 K/uL (130-400); RED CELL DISTRIBUTION WIDTH 14.6 % (11.0-15.5)
[2021-07-09 05:04] LABS: ALBUMIN 1.7 g/dL (3.5-5.0); ASPARTATE AMINOTRANSFERASE 14 U/L (10-37); BILIRUBIN,TOTAL 0.3 mg/dL (0.2-1.0); CARBON DIOXIDE 27 mmol/L (21-32); CHLORIDE 100 mmol/L (101-111); CREATININE 4.3 mg/dL (0.5-1.5); GLOMERULAR FILTR. RATE CALC 11 mL/min (>60); GLUCOSE,RANDOM 74 mg/dL (70-105); POTASSIUM 3.4 mmol/L (3.5-5.1); SODIUM SERUM 136 mmol/L (136-145); TOTAL PROTEIN, SERUM 5.8 g/dL (6.0-8.3); UREA NITROGEN, BLOOD 37 mg/dL (7-18)
[2021-07-09 05:14] LABS: ALANINE AMINOTRANSFERASE < 6 U/L (12-78)
[2021-07-09 06:22] LABS: BILIRUBIN,URINE NEGATIVE (NEGATIVE); COLOR,URINE YELLOW (YELLOW); GLUCOSE, URINE (UA) NEGATIVE (NEGATIVE); KETONES,URINE NEGATIVE (NEGATIVE); LEUKOCYTE ESTERASE ,URINE MODERATE (NEGATIVE); NITRATE,URINE NEGATIVE (NEGATIVE); OCCULT BLOOD,URINE TRACE-INTACT (NEGATIVE); PROTEIN,URINE 100 mg/dL (NEGATIVE); UROBILINOGEN,URINE 0.2 mg/dL (0.2-1.0)
[2021-07-09] MEDS: LEVOTHYROXINE 50 MCG TABLET PO SCH (06:22)
[2021-07-09 06:38] LABS: APPEARANCE,URINE CLOUDY (CLEAR)
[2021-07-09 06:39] LABS: BACTERIA,URINE Many /HPF (None Seen); WBC,URINE 51-100 /HPF (0-1)
[2021-07-09 06:40] LABS: SQUAMOUS EPITHELIAL CELL,UR None Seen /HPF (0-2)
[2021-07-09 08:00] VITALS: BP 119/50
[2021-07-09] MEDS: AMLODIPINE 5 MG TAB PO SCH (08:53)
[2021-07-09] MEDS: PANTOPRAZOLE 40 MG/VIAL IVP SCH (08:53)
[2021-07-09] MEDS: CARVEDILOL 6.25 MG TABLET PO SCH (08:53)
[2021-07-09] MEDS: SODIUM BICARBONATE 650 MG TAB PO SCH ×3 (08:53→16:34)
[2021-07-09] MEDS: FERROUS SULFATE 325 MG TABLET.DR PO SCH (08:53)
[2021-07-09] MEDS: SODIUM BICARB 50MEQ 50ML VIAL IV SCH (08:54)
[2021-07-09] MEDS: HYDRALAZINE 25MG TABLET PO SCH (08:55)
[2021-07-09 12:00] VITALS: BP 129/60
[2021-07-09 16:00] VITALS: BP 125/47
== END 2021-07-09 19:45 | DRG 673 ==
LOC: EDH 05:50 → INTOOBSV 07:21 → OBSVTOIN 07:21 → EDHIP 07:21 → UNDOADMOB 07:21 → OBSVTOIN 08:41 → 4CH 08:41 → EDHIP 06-30 00:10
PROVIDERS: ADMIT Hospitalist; ATTEND Hospitalist
PROC: 30233N1 Transfusion of Nonautologous Red Blood Cells into Peripheral Vein, Percutaneous Approach (ICD-10-PCS; 2021-06-29)
PROC: 0JH63XZ Insertion of Tunneled Vascular Access Device into Chest Subcutaneous Tissue and Fascia, Percutaneous Approach (ICD-10-PCS; principal; 2021-07-03)
PROC: 5A1D70Z Performance of Urinary Filtration, Intermittent, Less than 6 Hours Per Day (ICD-10-PCS; 2021-07-03)
PROC: 02H633Z Insertion of Infusion Device into Right Atrium, Percutaneous Approach (ICD-10-PCS; 2021-07-03)
PROC: B5181ZA Fluoroscopy of Superior Vena Cava using Low Osmolar Contrast, Guidance (ICD-10-PCS; 2021-07-03)
PROC: B548ZZA Ultrasonography of Superior Vena Cava, Guidance (ICD-10-PCS; 2021-07-03)
PROC: 5A1D70Z Performance of Urinary Filtration, Intermittent, Less than 6 Hours Per Day (ICD-10-PCS; 2021-07-04)
PROC: 5A1D70Z Performance of Urinary Filtration, Intermittent, Less than 6 Hours Per Day (ICD-10-PCS; 2021-07-06)
PROC: 5A1D70Z Performance of Urinary Filtration, Intermittent, Less than 6 Hours Per Day (ICD-10-PCS; 2021-07-07)
DX: N17.9 Acute kidney failure, unspecified (principal); E43 Unspecified severe protein-calorie malnutrition; G93.41 Metabolic encephalopathy; J96.01 Acute respiratory failure with hypoxia; I13.2 Hypertensive heart and chronic kidney disease with heart failure and with stage 5 chronic kidney disease, or end stage renal disease; E87.1 Hypo-osmolality and hyponatremia; N18.6 End stage renal disease; E78.5 Hyperlipidemia, unspecified; Z20.822 Contact with and (suspected) exposure to COVID-19; D63.1 Anemia in chronic kidney disease; E11.22 Type 2 diabetes mellitus with diabetic chronic kidney disease; K57.90 Diverticulosis of intestine, part unspecified, without perforation or abscess without bleeding; I16.0 Hypertensive urgency; I50.9 Heart failure, unspecified; Z68.22 Body mass index [BMI] 22.0-22.9, adult; Z91.018 Allergy to other foods; Z88.0 Allergy status to penicillin; Z88.8 Allergy status to other drugs, medicaments and biological substances; Z82.3 Family history of stroke; Z83.3 Family history of diabetes mellitus; Z82.5 Family history of asthma and other chronic lower respiratory diseases; Z82.49 Family history of ischemic heart disease and other diseases of the circulatory system; Z82.0 Family history of epilepsy and other diseases of the nervous system
CPT/HCPCS: 36415; 36558; 36600; 70450; 71045; 74176; 76770; 77001; 80048; 80053; 80061; 80074; 81001; 82010; 82270; 82435; 82550; 82728; 82803; 82947; 82948; 83036; 83540; 83550; 83605; 83690; 83880; 84100; 84132; 84295; 84484; 85014; 85018; 85025; 85610; 85730; 86701; 86704; 86706; 86850; 86870; 86900; 86901; 86905; 86922; 87040; 87077; 87088; 87186; 87390; 87426; 87486; 87507; 87581; 87633; 87635; 87798; 87804; 90935; 93005; 94640; 94664; 94667; 94668; 97039; C1750; C9113; G0378; J0360; J1644; J3490; J7030; J7070; P9016

== ENCOUNTER 2021-08-30 06:44 | Day surgery (SDC) | payer MEDICARE ==
[2021-08-29 15:38] LABS: HEMATOCRIT 30.9 % (36-48); MEAN CORPUSCULAR HEMOGLOBIN 29.2 pg (27.0-33.0); MEAN CORPUSCULAR HGB CONC 29.4 g/dL (32.0-36.0); PLATELET COUNT (AUTO) 189 K/uL (130-400); RED BLOOD CELL COUNT(AUTO) 3.12 MIL/uL (4.00-5.50); RED CELL DISTRIBUTION WIDTH 14.6 % (11.0-15.5); WHITE BLOOD COUNT (AUTO) 5.3 K/uL (4.8-10.8)
[2021-08-29 15:49] LABS: CREATININE 3.9 mg/dL (0.5-1.5); POTASSIUM 3.4 mmol/L (3.5-5.1)
[2021-08-29 15:50] LABS: INR 1.05 (0.85-1.15); PROTHROMBIN TIME 11.4 SEC (9.6-11.6)
[2021-08-29 15:52] LABS: PARTIAL THROMBOPLASTIN TIME 32.7 SEC (26.3-35.5)
[2021-08-29 16:08] VITALS: BP 139/70
[2021-08-30] VITALS (19 sets, daily range): BP systolic 114–177; BP diastolic 29–61
[~2021-08-30] VITALS: Ht 157.5 cm; Wt 58.9 kg
[~2021-08-30 06:44] MED LIST changes: -CARV6.25 PO; +FERR-72 PO; -FERS325 PO; -FOLI0.8T22 PO; -INSLAN SQ; +IPRA3AMP24 IH; +LACT10SO9 PO; -LOSA50TA64 PO; -MULT1TAB61 PO; -OMEG-148 PO; -SODI650T PO
[2021-08-30] MEDS ORDERED: CLINDAMYCIN IVPB 900MG/50ML 50 ML IV ONE (06:53)
[2021-08-30] MEDS ORDERED: 0.9% NACL 500ML IV.SOLN 500 ML IV ONE (06:53)
[2021-08-30] MEDS ORDERED: CLINDAMYCIN IVPB 900MG/50ML 50 ML IV SCH (08:00)
[2021-08-30] MEDS ORDERED: FAMOTIDINE 20MG VIAL IV ONE (08:04)
[2021-08-30] MEDS ORDERED: GLYCOPYRROLATE 1 MG/5 ML SYRINGE ONE ×2 (08:06→10:41)
[2021-08-30] MEDS ORDERED: FENTANYL CITRATE PF 50 MCG/1 ML 2ML VIAL ONE (08:07)
[2021-08-30] MEDS ORDERED: ROCURONIUM 10MG/1ML SYR 10 MG/ML ML ONE (08:07)
[2021-08-30] MEDS ORDERED: PROPOFOL 10 MG/ML 20ML VIAL IV ONE (08:08)
[2021-08-30] MEDS ORDERED: CLINDAMYCIN 900MG/6ML INJ ONE (09:03)
[2021-08-30] MEDS ORDERED: BUPIVACAINE/PF 0.5% 30ML VIAL ONE (09:35)
[2021-08-30] MEDS ORDERED: LIDOCAINE HCL 1% MDV 50ML VIAL ONE (09:35)
[2021-08-30] MEDS ORDERED: PROTAMINE SULFATE 10 MG/ML 25ML VIAL IV ONE (09:52)
[2021-08-30] MEDS ORDERED: HEPARIN 10,000 UNIT/10ML (1,000 UNIT/ML) VIAL ONE (09:52)
[2021-08-30] MEDS ORDERED: NEOSTIGMINE 5MG/5ML SYR IV ONE (09:53)
== END 2021-08-30 12:35 | disposition home or self-care (01) ==
LOC: DAH 06:44
PROVIDERS: ATTEND Thoracic Surgery (Cardiothoracic Vascular Surgery)
DX: I13.2 Hypertensive heart and chronic kidney disease with heart failure and with stage 5 chronic kidney disease, or end stage renal disease (principal); Z20.822 Contact with and (suspected) exposure to COVID-19; N18.6 End stage renal disease; I50.9 Heart failure, unspecified; Q14.2 Congenital malformation of optic disc; E03.9 Hypothyroidism, unspecified; Z79.899 Other long term (current) drug therapy; Z98.890 Other specified postprocedural states; Z88.0 Allergy status to penicillin; Z98.51 Tubal ligation status; Z91.018 Allergy to other foods; Z99.2 Dependence on renal dialysis
CPT/HCPCS: 36415 ×2; 36821; 71045; 80048; 82948 ×3; 84132; 85027; 85610; 85730; 86850; 86900; 86901; 87635; 93005; A4215; A4221; A4222; A4223; A4649; A4663; A4930; A6207; A6260; C1713 ×2; C9803; G0168; J1644 ×2; J2704; J2710; J2720; J3010; J3490 ×7; J7030; J7040